=== PATIENT | male | born 1990 | race Caucasian/White ===

== ENCOUNTER 2019-02-12 01:19 | Emergency (ER) | payer MEDICAID ==
[~2019-02-12] VITALS: Ht 162.6 cm; Wt 75.0 kg
[2019-02-12] MEDS ORDERED: MORPHINE SULFATE 4 MG/ML CPJ (NOT FOR IM USE) IV STA (07:14)
[2019-02-12] MEDS ORDERED: ONDANSETRON HCL 4MG/2ML INJ IV STA (07:14)
[2019-02-12] MEDS ORDERED: SODIUM CHLORIDE 0.9% 1,000 ML IV ONE (07:14)
[2019-02-12] MEDS ORDERED: KETOROLAC 30MG/ML VIAL IV STA (07:14)
[2019-02-12 08:41] LABS: HEMATOCRIT. 39.5 % (42.0-52.0); HEMOGLOBIN. 13.4 g/dL (14.0-18.0); MEAN CORPUSCULAR HEMOGLOBIN 29.7 pg (28.0-32.0); MEAN CORPUSCULAR VOLUME 87.7 fL (80.0-94.0); MEAN PLATELET VOLUME 6.9 fl (7.4-10.4); PLATELET 277 x1000/uL (130-400); RED BLOOD CELL COUNT 4.51 mill/uL (4.7-6.1); RED CELL DISTRIBUTION WIDTH 13.9 % (11.6-14.6)
[2019-02-12 08:47] LABS: CHLORIDE 96 mEq/L (98-107)
[2019-02-12 09:07] LABS: PLATELET ESTIMATE NORMAL
[2019-02-12 10:00] VITALS: BP 122/72
[2019-02-12] MEDS ORDERED: IOHEXOL-300 100 ML BOTTLE ONE (11:41)
== END 2019-02-12 10:40 | disposition home or self-care (01) ==
LOC: ER 01:19
DX: R10.31 Right lower quadrant pain (principal); Z98.890 Other specified postprocedural states
CPT/HCPCS: 36415; 74177; 80053; 83690; 85025; 96374; 96375; 99284; J1885; J2270; J2405; J7030; Q9967; Z7610

== ENCOUNTER 2019-02-22 18:43 | Emergency (ER) | payer MEDICAID ==
[~2019-02-22] VITALS: Ht 162.6 cm; Wt 75.0 kg
[2019-02-22 21:11] VITALS: BP 122/77
== END 2019-02-22 21:13 | disposition home or self-care (01) ==
LOC: ER 18:43
DX: J06.9 Acute upper respiratory infection, unspecified (principal)
CPT/HCPCS: 99281

== ENCOUNTER 2019-04-04 04:42 | Emergency (ER) | payer MEDICAID ==
[~2019-04-04] VITALS: Ht 162.6 cm; Wt 73.0 kg
[2019-04-04 04:54] VITALS: BP 126/89
[2019-04-04] MEDS ORDERED: IBUPROFEN 800MG TABLET PO ONE (05:15)
== END 2019-04-04 05:16 | disposition home or self-care (01) ==
LOC: ER 04:42
DX: J06.9 Acute upper respiratory infection, unspecified (principal)
CPT/HCPCS: 99282

== ENCOUNTER 2019-07-08 04:39 | Emergency (ER) | payer MEDICAID ==
[~2019-07-08] VITALS: Ht 162.6 cm; Wt 75.0 kg
[2019-07-08 06:17] VITALS: BP 133/90
== END 2019-07-08 06:23 | disposition home or self-care (01) ==
LOC: ER 04:39
DX: L03.314 Cellulitis of groin (principal)
CPT/HCPCS: 99284

== ENCOUNTER 2019-07-11 03:03 | Emergency (ER) | payer MEDICAID, OTHER ==
[~2019-07-11] VITALS: Ht 162.6 cm; Wt 77.0 kg
[2019-07-11 04:20] VITALS: BP 132/94
== END 2019-07-11 04:57 | disposition home or self-care (01) ==
LOC: ER 03:03
DX: Z48.00 Encounter for change or removal of nonsurgical wound dressing (principal)
CPT/HCPCS: 99281

== ENCOUNTER 2019-08-16 03:44 | Emergency (ER) | payer MEDICAID, OTHER ==
[~2019-08-16] VITALS: Ht 162.6 cm; Wt 75.4 kg
[2019-08-16 03:52] VITALS: BP 134/47
== END 2019-08-16 04:30 | disposition left against medical advice (07) ==
LOC: ER 03:44
DX: Z53.21 Procedure and treatment not carried out due to patient leaving prior to being seen by health care provider (principal)

== ENCOUNTER 2019-09-30 06:25 | Emergency (ER) | payer OTHER ==
[~2019-09-30] VITALS: Ht 162.6 cm; Wt 71.0 kg
[2019-09-30 06:28] VITALS: BP 125/85
== END 2019-09-30 07:11 | disposition home or self-care (01) ==
LOC: ER 06:33
DX: M79.604 Pain in right leg (principal)
CPT/HCPCS: 99281

== ENCOUNTER 2019-10-13 00:13 | Emergency (ER) | payer OTHER ==
[~2019-10-13] VITALS: Ht 170.2 cm; Wt 73.0 kg
[2019-10-13 00:16] VITALS: BP 115/78
== END 2019-10-13 00:42 | disposition left against medical advice (07) ==
LOC: ER 00:13
DX: Z53.21 Procedure and treatment not carried out due to patient leaving prior to being seen by health care provider (principal)

== ENCOUNTER 2019-10-14 03:31 | Emergency (ER) | payer OTHER ==
[~2019-10-14] VITALS: Ht 162.6 cm; Wt 75.0 kg
[2019-10-14 03:32] VITALS: BP 139/99
== END 2019-10-14 05:00 | disposition left against medical advice (07) ==
LOC: ER 04:50
DX: R68.89 Other general symptoms and signs (principal); Z53.21 Procedure and treatment not carried out due to patient leaving prior to being seen by health care provider

== ENCOUNTER 2024-06-16 02:28 | Emergency (ER) | payer MEDICAID, OTHER ==
[~2024-06-16] VITALS: Ht 162.6 cm; Wt 70.0 kg
[2024-06-16 02:36] VITALS: O2SAT 96
[2024-06-16 02:39] VITALS: BP 118/82; PULSE 90; RESP 18; TEMP 36.8; O2SAT 99
[2024-06-16] MEDS ORDERED: TETANUS, DIPHTHERIA, PERTUSSIS VAC/PF 0.5ML (>10YR OLD) IM ONE (02:45)
[2024-06-16] MEDS ORDERED: LIDOCAINE HCL/PF 1% 10 MG/ML 5ML VIAL INFIL ONE (02:45)
[2024-06-16] MEDS ORDERED: BACITRACIN ZINC OINT UDPKT TOP ONE (02:45)
[2024-06-16] MEDS: TETANUS, DIPHTHERIA, PERTUSSIS VAC/PF 0.5ML (>10YR OLD) IM ONE (06:15)
== END 2024-06-16 06:35 | disposition home or self-care (01) ==
LOC: ER 02:28
DX: S61.216A Laceration without foreign body of right little finger without damage to nail, initial encounter (principal); Z98.890 Other specified postprocedural states; W45.8XXA Other foreign body or object entering through skin, initial encounter; Y93.89 Activity, other specified; Y92.89 Other specified places as the place of occurrence of the external cause; Y99.8 Other external cause status
CPT/HCPCS: 12002; 90471; 90715; 99283